=== PATIENT | female | born 1990 ===

== ENCOUNTER 2016-06-08 17:49 | Emergency (ER) | payer SELFPAY ==
[2016-06-08 18:16] VITALS: BP 107/80
[2016-06-08 19:08] LABS: Bilirubin,Urine NEG (Negative); Blood,Urine SM (Negative); Ketones,Urine NEG (Negative); Leukocyte Esterase,Urine TR (Negative); Mucus,Urine 2+ /HPF; Nitrite,Urine NEG (Negative); Urobilinogen,Urine < 2.0 mg/dL (<2.0)
[2016-06-08 19:27] LABS: Basophils % (Auto) 0.4 % (0.0-1.8); Eosinophils % (Auto) 0.3 % (0.0-4.3); Hematocrit 38.3 % (30.3-42.9); Mean Corpuscular HGB Conc 31 % (30-34); Mean Corpuscular Volume 72 fl (79-97); Platelet Count 216 K/mm3 (140-440); Red Blood Count 5.31 M/mm3 (3.65-5.03); Red Cell Distribution Width 19.5 % (13.2-15.2); White Blood Count 7.4 K/mm3 (4.5-11.0)
[2016-06-08 19:34] LABS: Mean Corpuscular Hemoglobin 23 pg (28-32)
[2016-06-08 19:49] LABS: Alanine Aminotransferase 14 units/L (7-56); Albumin 4.5 g/dL (3.9-5); Albumin/Globulin Ratio 1.5 %; Alkaline Phosphatase 77 units/L (35-129); Anion Gap 18 mmol/L; BUN/Creatinine Ratio 18.57; Bilirubin,Total < 0.2 mg/dL (0.1-1.2); Blood Urea Nitrogen 13 mg/dL (7-17); Carbon Dioxide 25 mmol/L (22-30); Glucose 112 mg/dL (65-100); Lipase 31 units/L (13-60); Potassium 4.2 mmol/L (3.6-5.0); Sodium 140 mmol/L (137-145); Total Protein 7.6 g/dL (6.3-8.2)
--- NOTE | 2016-06-09 08:14 | ED Elopement Review ---
ED Pt Elopement review - Results review Lab results: Laboratory Tests 06/08/16 06/08/16 06/08/16 18:42 19:02 19:02 WBC 7.4 RBC 5.31 H Hgb 12.0 Hct 38.3 MCV 72 L MCH 23 L MCHC 31 RDW 19.5 H Plt Count 216 Lymph % (Auto) 25.1 [facility] % (Auto) 4.9 Eos % (Auto) 0.3 Baso % (Auto) 0.4 Lymph # 1.8 [facility] # 0.4 Eos # 0.0 Baso # 0.0 Seg Neutrophils % 69.3 Seg Neutrophils # 5.1 Sodium 140 Potassium 4.2 Chloride 101.0 Carbon Dioxide 25 Anion Gap 18 BUN 13 Creatinine 0.7 Estimated GFR > 60 BUN/Creatinine Ratio 18.57 Glucose 112 H Calcium 9.0 Total Bilirubin < 0.2 AST 20 ALT 14 Alkaline Phosphatase 77 Total Protein 7.6 Albumin 4.5 Albumin/Globulin Ratio 1.5 Lipase 31 Urine Color Yellow Urine Turbidity Clear Urine pH 5.0 Ur Specific [place] 1.028 Urine Protein 100 mg/dl Urine Glucose (UA) Neg Urine Ketones Neg Urine Blood Sm Urine Nitrite Neg Urine Bilirubin Neg Urine Urobilinogen < 2.0 Ur Leukocyte Esterase Tr Urine WBC (Auto) 4.0 Urine RBC (Auto) 6.0 U Epithel Cells (Auto) 3.0 Urine Mucus 2+ Urine HCG, Qual Negative - Call Back decision Pt Call Back Decision: No action required
== END 2016-06-09 05:27 | disposition left against medical advice (07) ==
LOC: ED 17:49
DX: R10.9 Unspecified abdominal pain (principal); R11.2 Nausea with vomiting, unspecified; Z53.21 Procedure and treatment not carried out due to patient leaving prior to being seen by health care provider
CPT/HCPCS: 36415; 80053; 81001; 81025; 83690; 85025